=== PATIENT | female | born 1965 | race Caucasian/White ===

== ENCOUNTER 2020-06-25 13:21 | Outpatient (CLI) | payer OTHER ==
--- NOTE | 2020-06-25 14:44 | MMO ---
Bilateral MAMMO Bilat Screen [facility]. CLINICAL HISTORY: Patient is 55 years old and is seen for screening. The patient has no family history of breast cancer. The patient has no personal history of cancer. VIEWS: The views performed were: bilateral craniocaudal with tomosynthesis and bilateral mediolateral oblique with tomosynthesis. This study has been interpreted with the assistance of computer-aided detection. MAMMOGRAM FINDINGS: There are scattered fibroglandular densities. There is a focal asymmetry seen in the posterior outer region of the right breast located 11 centimeters from the nipple. In the left breast, there are no suspicious masses, calcifications or areas of architectural distortion. IMPRESSION: FOCAL ASYMMETRY IN THE RIGHT BREAST REQUIRES ADDITIONAL EVALUATION. ADDITIONAL PROJECTIONS ARE RECOMMENDED. AN ULTRASOUND EXAM IS RECOMMENDED. SPOT MAGNIFICATION VIEW(S) ARE RECOMMENDED. ADDITIONAL IMAGING. THE RESULTS OF THIS EXAM WERE SENT TO THE PATIENT. ACR BI-RADS Category 0 - Incomplete: Need additional imaging evaluation. [facility] will notify the patient of the need for additional imaging services. MAMMOGRAPHY NOTE: 1. A negative mammogram report should not delay a biopsy if a dominant of clinically suspicious mass is present. 2. Approximately 10% to 15% of breast cancers are not detected by mammography. 3. Adenosis and dense breasts may obscure an underlying neoplasm. Reported by: JODIE PRINGLE MD Electonically Signed: [id number]
== END 2020-06-25 13:22 | disposition home or self-care (01) ==
LOC: BICMAMMO 13:21
PROVIDERS: ATTEND Family Medicine
DX: Z12.31 Encounter for screening mammogram for malignant neoplasm of breast (principal); N64.89 Other specified disorders of breast
CPT/HCPCS: 77063; 77067

== ENCOUNTER 2020-07-02 06:48 | Outpatient (CLI) | payer OTHER ==
--- NOTE | 2020-07-02 07:39 | ULT ---
Pelvic sonogram transabdominal imaging HISTORY: Recurrent UTI. FINDINGS: Urinary bladder shows no focal abnormalities. Patient unable to void to decrease volume, ca lculated 188 cc. Uterus and ovaries are surgically absent. No pelvic mass or free fluid are apparent. IMPRESSION : Status post hysterectomy and bilateral oophorectomy. Moderate postvoid urinary bladder residual 188 cc.
--- NOTE | 2020-07-02 10:30 | MMO ---
Right Breast MAMMO Unilat Diag [facility]. CLINICAL HISTORY: Patient is 55 years old and is seen for additional evaluation requested at current screening. The patient has no family history of breast cancer. The patient has no personal history of cancer. VIEWS: The views performed were: right craniocaudal spot compression with tomosynthesis; right mediolateral oblique spot compression with tomosynthesis; and right mediolateral with tomosynthesis. FILMS COMPARED: The present examination has been compared to prior imaging studies performed at [facility] on 06/25/2020 and 07/02/2020. This study has been interpreted with the assistance of computer-aided detection. MAMMOGRAM FINDINGS: There are scattered fibroglandular densities. Additional views were performed. The previously seen abnormality is not definitely seen on the current study. US is negative. There are no suspicious masses, suspicious calcifications, or new areas of architectural distortion. IMPRESSION: THERE IS NO MAMMOGRAPHIC EVIDENCE OF MALIGNANCY. A ROUTINE FOLLOW-UP MAMMOGRAM IN 1 YEAR IS RECOMMENDED. THE RESULTS OF THIS EXAM WERE SENT TO THE PATIENT. ACR BI-RADS Category 2 - Benign finding MAMMOGRAPHY NOTE: 1. A negative mammogram report should not delay a biopsy if a dominant of clinically suspicious mass is present. 2. Approximately 10% to 15% of breast cancers are not detected by mammography. 3. Adenosis and dense breasts may obscure an underlying neoplasm. Reported by: TOSIN MAGANA MD Electonically Signed: [id number]
--- NOTE | 2020-07-02 10:38 | ULT ---
RIGHT BREAST ULTRASOUND: HISTORY: Abnormal mammogram of 06/25/2020. FINDINGS: Correlation is made with the mammograms of today and 06/25/2020. Sonographic evaluation of the right upper outer breast demonstrates no abnormality. IMPRESSION: BIRADS category 2 - benign findings. Return to annual mammographic screening. POS: OFF
== END 2020-07-02 06:49 | disposition home or self-care (01) ==
LOC: BICMAMMO 06:48
PROVIDERS: ATTEND Family Medicine
DX: N39.0 Urinary tract infection, site not specified (principal); R92.2 Inconclusive mammogram; Z90.710 Acquired absence of both cervix and uterus; Z90.722 Acquired absence of ovaries, bilateral
CPT/HCPCS: 76856; G0279

== ENCOUNTER 2020-08-27 14:10 | Outpatient (CLI) | payer OTHER ==
--- NOTE | 2020-08-27 14:35 | ULT ---
US Renal Bilateral STANDARD: 08/27/2020 2:18 PM CLINICAL HISTORY: History of kidney stones in the . History of urinary tract infection for a viri begum. STUDY: Renal ultrasound COMPARISON: None. FINDINGS: Right kidney: Echogenicity: Normal. Masses/cysts: None. Hydronephrosis: None. Calcifications: None. Length: 11.3 cm Left kidney: Echogenicity: Normal. Masses/cysts: None. Hydronephrosis: None. Calcifications: None. Length: 10.7 cm Limited visualization of the urinary bladder is unremarkable. Both ureteral jets were seen. IMPRESSION: Unremarkable renal ultrasound
--- NOTE | 2020-08-27 14:42 | RAD ---
XR Abdomen 1 View/KUB History: Bacteriuria. Renal stones Comparison: Renal ultrasound same day Findings: 4-5 mm calculus projects over the left inferior renal collecting system. Moderate vascular calcifications of the splenic artery. No definite right-sided renal calculi are appreciated. No acute osseous abnormality. No dilated loops of large or small bowel. Impression: 4-5 mm calcification projects over the left inferior renal collecting system.
== END 2020-08-27 14:11 | disposition home or self-care (01) ==
LOC: BICULT 14:10
PROVIDERS: ATTEND Urology
DX: Z16.20 Resistance to unspecified antibiotic (principal); R82.71 Bacteriuria; Z87.442 Personal history of urinary calculi; N28.89 Other specified disorders of kidney and ureter
CPT/HCPCS: 74018; 76770

== ENCOUNTER 2024-06-15 23:15 | Emergency (ER) | payer OTHER ==
[2024-06-15 23:50] LABS: Bacteria/HPF 4+ HPF (None Seen); Bilirubin Negative (Negative); Blood, Urine Trace (Negative); CAUTI Indications for Culture Dysuria,urgency,freq; Clarity Turbid (Clear); Glucose, Urine (Dipstick) Normal (Negative); Ketone, Urine Negative (Negative); Leukocyte 500 Leu/uL (Negative); Nitrite Negative (Negative); Protein, Urine (Dipstick) 30 mg/dL (Neg-Trace); Specific Gravity, Urine 1.017 (1.002-1.036); Squamous Epithelial 0-3 HPF (0-3); WBC/HPF Greater than 50 HPF (0-3)
[2024-06-15 23:56] LABS: Urine Culture Reflex Yes Yes
[2024-06-16 00:02] LABS: #Basophils 0.08 10x3/uL (0.0-0.2); %Basophils 0.5 % (0.0-1.0); %Lymphocytes 12.3 % (21.0-51.0); %Monocytes 5.4 % (0.0-10.0); %Neutrophils 80.4 % (42.0-75.0); Hematocrit 40.7 % (36.0-47.0); Hemoglobin 13.3 g/dL (12.0-16.0); Mean Corpuscular HGB CONC 32.7 g/dL (32.0-36.0); Mean Corpuscular Hemoglobin 26.8 pg (27.0-31.0); Mean Corpuscular Volume 81.9 fL (78.0-98.0); Mean Platelet Volume 8.9 fL (7.4-10.4); Platelet Count 316 10x3/uL (130-400); RBC Distribution Width 15.5 % (11.5-14.5); Red Blood Cell (RBC) Count 4.97 mill/uL (4.20-5.40)
[2024-06-16 00:16] LABS: ALT (SGPT) 22 U/L (8-55); AST (SGOT) 28 U/L (5-34); Albumin 3.4 g/dL (3.5-5.0); Alkaline Phosphatase 56 U/L (40-110); Anion Gap 14 mmol/L (10-20); BUN (Urea Nitrogen) 12 mg/dL (9.8-20.1); Bilirubin, Total 0.4 mg/dL (0.2-1.2); Calc. Creatinine Clearance 0 mL/min (70-130); Carbon Dioxide 24 mmol/L (22-29); Chloride 107 mmol/L (98-107); Estimated GFR 92; Globulin 3.1 g/dL (2.4-3.5); Glucose 105 mg/dL (70-105); Potassium 3.8 mmol/L (3.5-5.1); Protein, Total 6.5 g/dL (6.0-8.3); Sodium 141 mmol/L (136-145)
[2024-06-16 00:23] LABS: Troponin I Less than 0.010 ng/mL (< 0.028)
[2024-06-16] MEDS ORDERED: Nitrofurantoin Monohyd/M-Cryst 100 MG CAP ONE (00:40)
[2024-06-16] MEDS ORDERED: Phenazopyridine HCl 100 MG TAB ONE (01:23)
== END 2024-06-16 01:42 ==
LOC: ERS 23:15 → EEVIPCON 23:15 → ERS 06-16 01:42
DX: N39.0 Urinary tract infection, site not specified (principal)
CPT/HCPCS: 36415; 71045; 80053; 81001; 83880; 84484; 85025; 87077; 87086; 87186; 93005

== ENCOUNTER 2024-07-01 08:16 | Emergency (ER) | payer OTHER, SELFPAY ==
[2024-07-01 09:22] LABS: Bacteria/HPF 4+ HPF (None Seen); Bilirubin Negative (Negative); Blood, Urine Trace (Negative); CAUTI Indications for Culture Dysuria,urgency,freq; Clarity Clear (Clear); Glucose, Urine (Dipstick) Normal (Negative); Ketone, Urine Negative (Negative); Leukocyte 250 Leu/uL (Negative); Nitrite Negative (Negative); Protein, Urine (Dipstick) Negative (Neg-Trace); RBC/HPF 0-3 HPF (0-3); Specific Gravity, Urine 1.018 (1.002-1.036); Squamous Epithelial 0-3 HPF (0-3); Urobilinogen Normal mg/dL (Less than 2); WBC/HPF 21-50 HPF (0-3)
[2024-07-01 09:24] LABS: Urine Culture Reflex Yes Yes
== END 2024-07-01 09:51 | disposition home or self-care (01) ==
LOC: ERS 08:16
DX: N39.0 Urinary tract infection, site not specified (principal)
CPT/HCPCS: 81001; 87077; 87086; 87186; 99283